=== PATIENT | male | born 1970 | race Caucasian/White ===

== ENCOUNTER 2017-03-06 21:06 | Emergency (ER) | payer MEDICAID ==
[~2017-03-06] VITALS: Ht 172.7 cm; Wt 99.3 kg
[~2017-03-06 21:06] MED LIST: ALPR0.5T PO
[2017-03-06 21:12] VITALS: Ht 172.7 cm; Wt 99.3 kg
--- NOTE | 2017-03-06 23:16 | ERD ---
ER Documentation Chief Complaint Chief Complaint jaw swelling worst today; already taking ATB since Saturday from dentist HPI 46-year-old male presents here to emergency department for complaints of left jaw swelling, left peritonsillar swelling has been going on for the last 2 days , worse today. Patient is unable to open completely the mouth because of the pain and swelling inside his throat. Patient was seen by the dentist, was started on antibiotics, amoxicillin, patient had an infected impacted molar, has been taking antibiotics everything, not became more swollen and painful. Patient describes the pain as throbbing pain, 8/10 scale, not better or worse with anything. Patient denies any fever or chills. Patient denies any stridor or shortness of breath. ROS All systems reviewed and are negative except as per history of present illness. Medications Home Meds Active Scripts Alprazolam* (Xanax*) 0.5 Mg Tab, 0.5 MG PO DAILY Y for ANXIETY, #5 TAB 0 Refills Prov:KAMRAN JIMENEZ PA-C 08/13/15 Allergies Allergies: Coded Allergies: No Known Drug Allergies (Verified Allergy, Unknown, 08/13/15) PMhx/Soc Medical and Surgical Hx: pt denies Surgical Hx History of Surgery: No Anesthesia Reaction: No Hx Neurological Disorder: No Hx Respiratory Disorders: No Hx Cardiac Disorders: No Hx Psychiatric Problems: Yes (Depression) Hx Miscellaneous Medical Probl: No Hx Alcohol Use: No Hx Substance Use: No Hx Tobacco Use: No Smoking Status: Never smoker FmHx Family History: No coronary disease, No diabetes, No other Physical Exam Vitals Vital Signs Date Time Temp Pulse Resp B/P Pulse Ox O2 Delivery O2 Flow Rate FiO2 03/06/17 21:12 99.0 97 20 145/105 99 Physical Exam GENERAL: The patient is well developed and appropriate for usual state of health, in no apparent distress. HEENT: Atraumatic. Ears: Normal tympanic membrane, no erythema or bulging. No ear canal swelling. No ear discharge. Nose: normal nasal turbinates, no erythema or swelling. Normal nasal discharge. Throat: oropharynx edematous with left peritonsillar swelling noted, tender and fluctuant. No stridor. No lymphadenopathy. CHEST: Clear to auscultation bilaterally. There are no rales, wheezes or rhonchi. HEART: Regular rate and rhythm. No murmurs, clicks, rubs or gallops. No S3 or S4. ABDOMEN: Soft, nontender and nondistended. Good bowel sounds. No rebound or guarding. No gross peritonitis. No gross organomegaly or masses. No Daniel sign or McBurney point tenderness. BACK: No midline or flank tenderness. EXTREMITIES: Equal pulses bilaterally. There is no peripheral clubbing, cyanosis or edema. No focal swelling or erythema. Full range of motion. Grossly neurovascularly intact. NEURO: Alert and oriented. Cranial nerves 2-12 intact. Motor strength in all 4 extremities with 5/5 strength. Sensation grossly intact. Normal speech and gait. SKIN: There is no apparent rash or petechia. The skin is warm and dry. HEMATOLOGIC AND LYMPHATIC: There is no evidence of excessive bruising or lymphedema. No gross cervical, axillary, or inguinal lymphadenopathy. Result Diagram: 03/06/17224903/06/172249 Results 24 hrs Laboratory Tests Test 03/06/17 22:50 White Blood Count 22.010^3/ul Red Blood Count 4.7510^6/ul Hemoglobin 14.3g/dl Hematocrit 42.1% Mean Corpuscular Volume 88.6fl Mean Corpuscular Hemoglobin 30.1pg Mean Corpuscular Hemoglobin Concent 34.0g/dl Red Cell Distribution Width 11.9% Platelet Count 50169^3/UL Mean Platelet Volume 11.4fl Neutrophils % 82.8% Lymphocytes % 5.6% Monocytes % 9.4% Eosinophils % 0.6% Basophils % 0.2% Nucleated Red Blood Cells % 0.0/100WBC Neutrophils # 18.210^3/ul Lymphocytes # 1.210^3/ul Monocytes # 2.110^3/ul Eosinophils # 0.110^3/ul Basophils # 0.110^3/ul Nucleated Red Blood Cells # 0.010^3/ul Sodium Level 138mmol/L Potassium Level 3.3mmol/L Chloride Level 98mmol/L Carbon Dioxide Level 28mmol/L Anion Gap 15 Blood Urea Nitrogen 13mg/dl Creatinine 1.04mg/dl Glucose Level 119mg/dl Calcium Level 9.6mg/dl Current Medications Medications (Trade) Dose Ordered Sig/Kim Route PRN Reason Start Time Stop Time Status Last Admin Dose Admin Sodium Chloride (NS) 100 ml @ ud STK-MED ONCE .ROUTE 03/07/17 00:14 03/07/17 00:15 DC 03/07/17 00:21 Iohexol (Omnipaque 300mg/ ml) 150 ml STK-MED ONCE .ROUTE 03/07/17 00:14 03/07/17 00:15 DC 03/07/17 00:21 Lidocaine/ Epinephrine (Xylocaine 1%/ Epi (Pf)) 10 ml ONCE ONCE INJ 03/07/17 01:10 03/07/17 01:11 DC PROCEDURE: CT scan of the neck with contrast. CLINICAL INDICATION: . Left-sided throat swelling. TECHNIQUE: CT scan of the neck was performed on a multidetector scanner. Contiguous axial images were obtained throughout the neck with coronal and sagittal reformatted images. The patient was examined following the uncomplicated intravenous administration of 100 cc of Omnipaque 300. The exam CTDlvol = 9.3 mGy and DLP = 275 mGy-cm. Automated dose exposure was utilized for this examination One or more of the following dose reduction techniques were used: Automated exposure control. Adjustment of the mA and/or kV according to patient size. Use of iterative reconstruction technique. DICOM images are available. COMPARISON: None available. FINDINGS: There is a peripherally enhancing irregular left peritonsillar collection measuring 3.7 x 3.1 x 3, compatible with an abscess. There is surrounding infiltration and moderate effacement of the left lateral aspect of the oropharynx. Collection abuts the medial surface of the posterior left farrukh mandible. There are no associated osseous erosions or evidence for dental disease. There is infiltration extending left laterally partially surrounding the superior lateral aspect left submandibular gland to the level of the left platysma. There is slight infiltration left of complex subcutaneous fat. The left parotid gland is unremarkable. There are multiple enlarged lymph nodes largest in the left jugular digastric region 1.7 x 1.5 cm. The remainder of the oropharynx, hypopharynx, larynx, and trachea are unremarkable. The prevertebral spaces are unremarkable. The epiglottis is normal in appearance. The thyroid gland is unremarkable. Lung apices are unremarkable. Regional bones are unremarkable. IMPRESSION: Irregular left peritonsillar abscess with moderate effacement of the left oropharynx. Associated lymphadenopathy, greatest the left jugular digastric node. RPTAT: HMVK .Bry Flores MD, MD Date Time Electronically viewed and signed by .Bry Flores MD, MD on 03/07/2017 00:30 .K/ CC: SHAYAN OLIVER NP, Dr., ENT specialist was contacted for the patient, will come and evaluate possibly do an I& D Dr. Chu performed an incision and drainage on the peritonsillar abscess, see his note. Procedures/MDM Medical decision making: Patient symptoms was likely is consistent with peritonsillar abscess, incision and drainage was done by the ENT specialist, Dr. Gomes, he also recommended starting the patient on IV clindamycin, and pain medication to go home, was advised to follow-up with dentist for further evaluation. Patient does not have any symptoms of oral airway obstruction at this time. Patient appears once hemodynamically stable. No symptoms of any sepsis. Patient is elevation of white count most likely is from the infection. At this time, patient appears well and hemodynamically stable. Admission not indicated at this time. Patient tolerated procedure of incision and drainage well. Prescription was given for clindamycin, Medrol Dosepak, Liscomb, is advised to follow with primary care doctor in 2-3 days for reevaluation of symptoms. Patient was advised to see dentist appointment. Patient is advised to return to emergency department for any worsening symptoms. Disposition: Home. Stable. Departure Diagnosis: Primary Impression: Peritonsillar abscess Condition: Stable Patient Instructions: Peritonsillar Abscess SHAYAN OLIVER NP Mar 06, 2017 23:16
[2017-03-06 23:36] LABS: ABNORMAL IP MESSAGE 1; BASOPHIL # 0.1 10^3/ul (0.0-0.1); BASOPHILS % 0.2 % (0.0-2.0); EOSINOPHILS # 0.1 10^3/ul (0.0-0.5); EOSINOPHILS % 0.6 % (0.0-7.0); HEMATOCRIT 42.1 % (42.0-52.0); HEMOGLOBIN 14.3 g/dl (14.0-18.0); LYMPHOCYTES # 1.2 10^3/ul (0.8-2.9); LYMPHOCYTES % 5.6 % (15.0-51.0); MEAN CORPUSCULAR HEMOGLOBIN 30.1 pg (29.0-33.0); MEAN CORPUSCULAR VOLUME 88.6 fl (82.0-101.0); MEAN PLATELET VOLUME 11.4 fl (7.4-10.4); MONOCYTE # 2.1 10^3/ul (0.3-0.9); MONOCYTES % 9.4 % (0.0-11.0); NEUTROPHIL # 18.2 10^3/ul (1.6-7.5); NEUTROPHILS % 82.8 % (39.0-77.0); PLATELET COUNT 185 10^3/UL (140-415); POSITIVE DIFF @See below; RED BLOOD COUNT 4.75 10^6/ul (4.70-6.10); RED CELL DISTRIBUTION WIDTH 11.9 % (11.5-14.5)
[2017-03-06 23:58] LABS: CALCIUM 9.6 mg/dl (8.4-10.2); CREATININE 1.04 mg/dl (0.61-1.24); POTASSIUM 3.3 mmol/L (3.5-5.1)
[2017-03-07] MEDS ORDERED: SOD CHLORIDE 0.9% 100 ML ONE (00:14)
[2017-03-07] MEDS ORDERED: IOHEXOL 300MG/ML 150 ML BTL ONE (00:14)
--- NOTE | 2017-03-07 00:30 | RADRPT ---
PROCEDURE: CT scan of the neck with contrast. CLINICAL INDICATION: . Left-sided throat swelling. TECHNIQUE: CT scan of the neck was performed on a multidetector scanner. Contiguous axial images were obtained throughout the neck with coronal and sagittal reformatted images. The patient was exa mined following the uncomplicated intravenous administration of 100 cc of Omnipaque 300. The exam CTDlvol = 9.3 mGy and DLP = 275 mGy-cm. Automated dose exposure was utilized for this examination One or more of the following dose reduction techniques were used: Automated exposure control. Adjustment of the mA and/or kV according to patient size. Use of iterative reconstruction technique. DICOM images are available. COMPARISON: None available. FINDINGS: There is a peripherally enhancing irregular left peritonsillar collection measuring 3.7 x 3.1 x 3, compatible with an abscess. There is surrounding infiltration and moderate effacement of the left l ateral aspect of the oropharynx. Collection abuts the medial surface of the posterior left farrukh man dible. There are no associated osseous erosions or evidence for dental disease. There is infiltratio n extending left laterally partially surrounding the superior lateral aspect left submandibular glan d to the level of the left platysma. There is slight infiltration left of complex subcutaneous fat. The left parotid gland is unremarkable. There are multiple enlarged lymph nodes largest in the left jugular digastric region 1.7 x 1.5 cm. The remainder of the oropharynx, hypopharynx, larynx, and trachea are unremarkable. The prevertebra l spaces are unremarkable. The epiglottis is normal in appearance. The thyroid gland is unremarkabl e. Lung apices are unremarkable. Regional bones are unremarkable. IMPRESSION: Irregular left peritonsillar abscess with moderate effacement of the left oropharynx. Associated lym phadenopathy, greatest the left jugular digastric node. RPTAT: HMVK .Bry Flores MD, Date Time Electronically viewed and signed by .Bry Flores MD, on 03/07/2017 00:30 .K/
[2017-03-07] MEDS ORDERED: LIDOCAINE 1%/EPI 30 ML INJ INJ ONE (01:10)
[2017-03-07] MEDS ORDERED: MED4DP PO (02:54)
[2017-03-07] MEDS ORDERED: CLIN-73 PO (02:54)
[2017-03-07] MEDS ORDERED: HYDR-906 PO (02:54)
[2017-03-07] MEDS ORDERED: CLINDAMYCIN 600 MG/D5W (PMX) 50 ML IVPB SCH (03:00)
--- NOTE | 2017-03-08 13:02 | OPR ---
DATE OF OPERATION: 03/06/2017 PREOPERATIVE DIAGNOSIS: Left pharyngeal abscess. POSTOPERATIVE DIAGNOSIS: Left pharyngeal abscess. OPERATION PERFORMED: Incision and drainage of left pharyngeal abscess. SURGEON: Jaz Gomes MD INDICATIONS: Left pharyngeal abscess. DESCRIPTION OF PROCEDURE: Patient was consented and placed supine on the procedure table. After in filtration of ____ mL 1% lidocaine with epinephrine to the left pharyngeal area, a 16 blade was used to make an incision in the left pharyngeal area. Blunt and sharp dissection allowed opening of the left pharyngeal abscess pocket. Wound was irrigated. Procedure completed. The patient was discha rged to the care of the emergency physician. Dictated By: JAZ CHANCE/DWAYNE Conf#: [id number] DID#: [id number]
== END 2017-03-07 04:15 | disposition home or self-care (01) ==
LOC: FTE 21:06
DX: J36 Peritonsillar abscess (principal)
CPT/HCPCS: 42700; 70491; 80048; 85025; 96374; Q9967; Z7502; Z7610